=== PATIENT | male | born 1995 | race Asian ===

== ENCOUNTER 2016-04-02 12:26 | Emergency (ER) | payer OTHER ==
[~2016-04-02] VITALS: Ht 172.7 cm; Wt 73.6 kg
[2016-04-02 12:29] VITALS: TEMP 36.5; Ht 172.7 cm; Wt 73.6 kg
[2016-04-02] MEDS ORDERED: HYDROCODONE/ACETAMOPHEN 5/325MG TAB PO STA (12:57)
--- NOTE | 2016-04-02 13:23 | DIAGNOSTIC IMAGING REPORT ---
LEFT KNEE 1 OR 2 VIEWS ROUTINE CLINICAL HISTORY: Left knee pain status post trauma COMPARISON: None. DISCUSSION: No fractures or dislocations are visualized. There is no radiographic evidence of a joint effusion IMPRESSION: No fractures or dislocations identified. Electronically signed by: Ryan Hammond M.D. 04/02/2016 1:21 PM Dictated Date/Time: 04/02/2016 1:21 PM
--- NOTE | 2016-04-02 13:58 | EMERGENCY ROOM VISIT NOTE ---
ED Visit Note First contact with patient: 12:49 CHIEF COMPLAINT: Left knee injury HISTORY OF PRESENT ILLNESS: This 21-year-old male presents the ER with chief complaint of left knee injury. The patient states that he was skiing for the first time yesterday and fell twisting his left knee. The patient states he has been able to bear weight on the knee but it has been painful. The patient denies any giving out of the knee although he states it feels like it might give out. The patient denies any locking of the knee. The patient denies any hip or ankle pain. The patient denies any prior injury to the left knee. The patient has been taking ibuprofen for the pain without any relief. REVIEW OF SYSTEMS: 6 system review was performed and was negative unless stated otherwise in history of present illness. PMH: The patient is healthy; there is no significant medical or surgical history. SOCIAL HISTORY: Patient is a [employer] student. The patient denies any tobacco or alcohol use. PHYSICAL EXAM: Vital Signs: Were reviewed Reviewed Nurse's notes. GEN.: 21-year -old male appears in no acute distress. MENTAL STATUS: Alert, oriented, and cooperative. LEFT KNEE: No gross bony deformity noted. No erythema or edema noted. The patient is tender to palpation over the medial joint space. Patient has full range of motion with pain elicited with complete flexion. There is no ligamentous instability. The skin is normal and intact. EMERGENCY DEPARTMENT COURSE: The patient was evaluated. The patient was given [place] 5/325 mg one tablet by mouth for pain. X-ray of the left knee was ordered and interpreted by the radiologist and myself. DIAGNOSTICS:LEFT KNEE 1 OR 2 VIEWS ROUTINE CLINICAL HISTORY: Left knee pain status post trauma COMPARISON: None. DISCUSSION: No fractures or dislocations are visualized. There is no radiographic evidence of a joint effusion IMPRESSION: No fractures or dislocations identified. Electronically signed by: Ryan Hammond M.D. 04/02/2016 1:21 PM Dictated Date/Time: 04/02/2016 1:21 PM The patient was informed of the findings. The patient was placed in an Baldomero wrap. The patient has crutches at home to use. Patient was discharged home in stable condition. DIAGNOSIS: Sprained left Knee DISCHARGE INSTRUCTIONS: Wear the Baldomero wrap except for bathing until pain is tolerable without it. Use crutches for ambulation until pain is tolerable without them. Ice and elevation as much as possible over the next 24 hours. Ibuprofen 600 mg every 6 hours with food for pain. Take [place] as needed for more severe pain. Do not drive while taking the [place]. If there is no improvement in 3-4 days, follow-up with [facility] for referral to orthopedics. Current/Historical Medications No Active Prescriptions or Reported Meds Allergies Coded Allergies: No Known Allergies (Unverified , 05/29/14) Vital Signs Date Time Temp Pulse Resp B/P Pulse Ox O2 Delivery O2 Flow Rate FiO2 04/02/16 12:29 36.5 92 18 130/75 99 Room Air Medications Administered Medications (Trade) Dose Ordered Sig/Griffin Route Start Time Stop Time Status Last Admin Dose Admin Acetaminophen/ Hydrocodone Bitart ([place] 5/325 Tab) 1 tab NOW STAT PO 04/02/16 12:57 04/02/16 12:59 DC 04/02/16 12:57 1 TAB Departure Information Prescriptions No Active Prescriptions or Reported Meds Referrals No Doctor, Assigned (PCP) Patient Instructions [facility]
[2016-04-02] MEDS ORDERED: HYDR-5688 PO (13:59)
[2016-04-02 14:28] VITALS: BP 121/79; PULSE 81; O2SAT 99
== END 2016-04-02 14:29 | disposition home or self-care (01) ==
LOC: C.EDB 12:26 → C.EDD 14:29
DX: S83.92XA Sprain of unspecified site of left knee, initial encounter (principal); W18.39XA Other fall on same level, initial encounter; Y93.23 Activity, snow (alpine) (downhill) skiing, snowboarding, sledding, tobogganing and snow tubing